=== PATIENT | female | born 1995 | race Caucasian/White ===

== ENCOUNTER 2016-04-26 21:04 | Emergency (ER) | payer OTHER ==
[~2016-04-26] VITALS: Ht 157.5 cm; Wt 56.8 kg
[~2016-04-26 21:04] MED LIST: ADDERALL XR25 MG PO; ADDERALL5 MG PO
[2016-04-26 21:06] VITALS: BP 120/108; PULSE 84; TEMP 99
[2016-04-26 21:41] LABS: PH 6 (5-8); SQUAMOUS EPITHELIAL 0-2 /hpf; URINE APPEARANCE Hazy; URINE BACTERIA Rare /hpf; URINE BILIRUBIN Negative (NEGATIVE); URINE BLOOD 2+ (NEGATIVE); URINE COLOR Yellow; URINE GLUCOSE Negative (NEGATIVE); URINE KETONE Negative (NEGATIVE); URINE RBC 0-2 /hpf; URINE UROBILINOGEN Negative (NEGATIVE); URINE WBC 0-2 /hpf
[2016-04-26] MEDS ORDERED: FLEXERIL 1010 MG/TAB PO (22:48)
== END 2016-04-26 22:52 | disposition home or self-care (01) ==
LOC: COL.ER 21:04
PROVIDERS: Nurse Practitioner
DX: M54.5 Low back pain (principal); M62.830 Muscle spasm of back
CPT/HCPCS: J1885; J2360

== ENCOUNTER 2017-02-09 14:16 | Inpatient (IN) | payer OTHER ==
[~2017-02-09] VITALS: Ht 157.5 cm; Wt 53.3 kg
[2017-02-09] VITALS (8 sets, daily range): BP systolic 104–129; BP diastolic 56–80; PULSE 55–92; TEMP 97.7–98.8
[~2017-02-09 14:16] MED LIST changes: +FLEXERIL 1010 MG/TAB PO; +PREDNISONE 5MG5 MG PO; +[UNRECOGNIZED DRUG - OTHER]
[2017-02-09] MEDS ORDERED: NIKKI1 TAB PO (15:11)
[2017-02-10 04:00] VITALS: BP 101/67; PULSE 64; TEMP 97.4
[2017-02-10 08:00] VITALS: BP 101/67
[2017-02-10] MEDS ORDERED: BACTRIM DS 8001 TAB PO (09:36)
== END 2017-02-10 10:20 | disposition home or self-care (01) | DRG 603 ==
LOC: SDCO 14:16 → SURG 16:47 → SDCO 17:17 → SURG 17:18 → ICU 23:00
PROVIDERS: Surgery
PROC: 0H98XZZ Drainage of Buttock Skin, External Approach (ICD-10-PCS; principal; 2017-02-09 14:30)
DX: L02.31 Cutaneous abscess of buttock (principal); R45.851 Suicidal ideations; F43.23 Adjustment disorder with mixed anxiety and depressed mood
CPT/HCPCS: J2250; J2704; J3010; J7120

== ENCOUNTER → 2017-03-16 | Outpatient (CLI) | payer OTHER ==
[~2017-03-16] MED LIST changes: +BACTRIM DS 8001 TAB PO; +NIKKI1 TAB PO
== END ==
LOC: COL.RAD 14:15
DX: R76.11 Nonspecific reaction to tuberculin skin test without active tuberculosis (principal)